=== PATIENT | female | born 1935 | race Caucasian/White ===

== ENCOUNTER 2020-02-25 19:02 | Emergency (ER) | payer MEDICARE ==
[2020-02-25] MEDS ORDERED: FENTANYL CITRATE PF 50 MCG/1 ML 2ML VIAL ONE (19:37)
[2020-02-25] MEDS ORDERED: ACETAMINOPHEN-CODEINE 300/30MG TAB ONE (21:15)
[2020-02-25] MEDS ORDERED: LIDOCAINE 5% TOPICAL PATCH TP ONE (21:24)
== END 2020-02-25 21:41 | disposition home or self-care (01) ==
LOC: EDH 19:02
DX: S42.212A Unspecified displaced fracture of surgical neck of left humerus, initial encounter for closed fracture (principal); E11.9 Type 2 diabetes mellitus without complications; I10 Essential (primary) hypertension; W01.0XXA Fall on same level from slipping, tripping and stumbling without subsequent striking against object, initial encounter; Y93.89 Activity, other specified; Y92.090 Kitchen in other non-institutional residence as the place of occurrence of the external cause; Y99.8 Other external cause status
CPT/HCPCS: 29105; 73030; 96374; 99283; J3010